=== PATIENT | female | born 1970 | race Caucasian/White ===

== ENCOUNTER 2017-05-07 08:13 | Emergency (ER) | payer BC ==
--- OUTSIDE RECORDS SUMMARY | 2017-05-07 08:30 | XMS REPORT | Continuity of Care Document ---
:1970 Author Organization [facility] ([facility]) Address [address] [place] [address] Phone [phone] Care Team Providers Name Role Phone Alejandro Christie Primary Care Provider [phone] Source Comments This disclosure is being made pursuant to the Care Everywhere program, applicable federal and state laws, and may not contain all informaitonavailable regarding this patient.[facility] ([facility]) Active Allergies and Adverse Reactions Not on File Current Medications Prescription Sig. Disp. Refills Start Date End Date Status Naproxen Sodium 220 Take 440 mg by mouth Active mg Tab daily. multivitamin tablet Take 1 Tab by mouth Active daily. meTHIMAzole 5 mg Take 5 mg by mouth 3 Active tablet times daily. levothyroxine 125 mcg Take 1 Tab by mouth 30 Tab 11 08/09/2011 Active tablet every morning before breakfast. 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 Social History Tobacco Use Types Packs/Day Years Used Date Never Smoker Last Filed Vital Signs Vital Sign Reading Time Taken Blood Pressure 147/74 07/22/2011 3:12 PM CDT Pulse 82 07/22/2011 3:12 PM CDT Temperature 36.3 C (97.3 F) 07/22/2011 3:12 PM CDT Respiratory Rate 20 03/10/2007 10:56 PM CDT Height 1.695 m (5' 6.73") 03/04/2011 1:31 PM CDT Weight 126.2 kg (278 lb 3.5 oz) 07/22/2011 3:12 PM CDT Body Mass Index 43.93 07/22/2011 3:12 PM CDT Oxygen Saturation - - Plan of Care Health Maintenance Due Date Last Done Comments Hepatitis B Vaccine (1 of 3 - Primary Series) 1970 Tdap Vaccine 1981 Lipid Disorder Screening 1988 MMR Vaccine 1988 Td Vaccine 1988 Cervical Cancer Screening 2000 Mammogram 2010 Influenza Vaccine: Seasonal (#1) 06/20/2016 Results from Last 3 Months Not on file
[2017-05-07] MEDS ORDERED: oxyCODONE HCL/ACETAMINOPHEN 1 TAB TABLET PO ONE (08:56)
[2017-05-07 08:58] VITALS: BP 145/99
[2017-05-07] MEDS ORDERED: oxyCODONE HCL/ACETAMINOPHEN 1 TAB TABLET ONE (08:59)
--- NOTE | 2017-05-07 09:00 | ERNOTE ---
Lower Extremity HPI - General Lower Extremities Pain: foot: left Time Seen by Provider: 05/07/17 08:17 Source: patient Exam Limitations: no limitations - Immun/Allergies/Home Medications Immunizations: IMMUNIZATION HX Immunizations Up to Date Yes History of Influenza Vaccine No Hx Pneumococcal Vaccination No Allergies/Adverse Reactions: Allergies Allergy/AdvReac Type Severity Reaction Status Date / Time No Known Allergies Allergy Verified 05/07/17 08:25 Home Medications: HOME MEDICATIONS Levothyroxine Sodium [Synthroid] 125 mcg PO DAILY 05/07/17 [Last Taken Unknown] oxyCODONE HCL/ACETAMINOPHEN [Percocet 5 MG/325 MG] 1 - 2 tab PO Q4H PRN #30 tab 05/07/17 [Last Taken Unknown] - History of Present Illness Narrative: Patient has been in a CAMboot since September for tendinitis. She had an Xray initially and only had mild pain on a daily basis. Two days ago she started to have severe sharp and throbbing pain in the same location (medial arch), she denies any injury, wears the boot faithfully, does her exercises five times a day. Method of Injury: Reports: no apparent injury Other Injuries: Reports: none Subsequent Symptoms: Denies: sensory loss, numbness Review of Systems - Review of Systems Constitutional: Absent: recent illness, fever ENT: Absent: nasal drainage, sore throat Respiratory: Absent: shortness of breath Cardiology: Absent: chest pain Gastrointestinal/Abdominal: Absent: nausea, diarrhea, abdominal pain Genitourinary: Present: no symptoms reported Musculoskeletal: Present: See HPI Skin: Absent: rash Neurological: Absent: weakness, numbness - Patient's Past Medical History Patient History - Medical: Hypothyroidism, Obesity Patient History - Cardiac/Respiratory: No pertinent hx Patient History - Cancer: No Hx of Cancer Patient History - Other: None LMP (females 10-50): Menopausal - Social History Living Situations: home Abuse History: No History of abuse Psych History: No pertinent hx Smoking Status: Never smoker Alcohol Use: rarely Drug Use: none - Immunizations Immunizations Up to Date: Yes Hx Pneumococcal Vaccination: No History of Influenza Vaccine: No Physical Exam - Physical Exam General Appearance: Present: wd/wn, alert, no apparent distress, obese Respiratory: Present: no respiratory distress, normal breath sounds, no accessory muscle use, lungs clear Cardiovascular/Chest: Present: regular rate, rhythm, no murmur Extremity Exam: Present: normal inspection, normal except - - left poultry tender over medial arch, pain in that area with flexion, no other tenderness, no swelling,. Absent: calf tenderness Neurological Exam: Present: alert, oriented, normal mood/affect, no motor/ sensory deficits Skin Exam: Present: normal color, warm/dry ED Progress - Vital Signs Patient's Vital Signs:: I have reviewed the patient's vital signs. Vital Signs: Vital Signs 05/07/17 08:19 Temperature 37.0 C Pulse Rate 71 Respiratory 16 Rate Blood Pressure 191/96 O2 Sat by Pulse 100 Oximetry - X-Ray X-Ray #1 X-Ray: foot - no acute changes Interpretation: Interp. by me - Progress/Reassessment Chief Complaint: Foot Injury/Pain Progress Note-Subjective: 05/07/17 09:00 discussed Xray results, follow up with ortho, might need MRI, repeat BP improved Departure Clinical Impression: Foot pain, left - Departure Disposition: Home self-care Condition: Good Instructions: Tendinitis, [id number] Additional Instructions: call our orthopedic doctor after the weekend for follow up Referrals: Parisa Rahman ARNP [Primary Care Provider] - Prescriptions: oxyCODONE HCL/ACETAMINOPHEN [Percocet 5 MG/325 MG] 1 - 2 tab PO Q4H PRN #30 tab PRN Reason: Pain
== END 2017-05-07 09:01 | disposition home or self-care (01) ==
LOC: ER 08:13
DX: M79.672 Pain in left foot (principal); E03.9 Hypothyroidism, unspecified

== ENCOUNTER 2017-09-28 09:45 | Emergency (ER) | payer BC ==
[2017-09-28] MEDS ORDERED: KETOROLAC TROMETHAMINE 30 MG/ML VIAL IV ONE (10:04)
[2017-09-28] MEDS ORDERED: KETOROLAC TROMETHAMINE 30 MG/ML VIAL ONE (10:12)
[2017-09-28] MEDS ORDERED: ONDANSETRON HCL/PF 2 MG/ML VIAL ONE (10:12)
--- NOTE | 2017-09-28 10:12 | ERNOTE ---
Abdominal HPI - Narrative Date of Service: 09/28/17 - General Chief Complaint: Abdominal Pain Time Seen by Provider: 09/28/17 10:03 Source: patient Exam Limitations: no limitations - Immun/Allergies/Home Medications Immunizatons: IMMUNIZATION HX Immunizations Up to Date Yes History of Influenza Vaccine No Hx Pneumococcal Vaccination No Allergies/Adverse Reactions: Allergies No Known Allergies Allergy (Verified 09/28/17 09:55) Home Medications: HOME MEDICATIONS Levothyroxine Sodium [Synthroid] 125 mcg PO DAILY 05/07/17 [Last Taken Unknown] oxyCODONE HCL/ACETAMINOPHEN [Percocet 5 MG/325 MG] 1 - 2 tab PO Q4H PRN #30 tab 05/07/17 [Last Taken Unknown] Naproxen [Naprosyn] 500 mg PO BID PRN #60 tab 09/28/17 [Last Taken Unknown] Sennosides [Senna Lax] 8.6 mg PO BID #30 tablet 09/28/17 [Last Taken Unknown] Tamsulosin HCl [Flomax] 0.4 mg PO DAILY@1800 #30 cap 09/28/17 [Last Taken Unknown] - History of Present Illness Narrative: Pt. comes in with c/o RLQ abd pain for two weks that was mild intermittent and for the past two days has become severe continuous pain that radiates to her umbilicus. Pt. states that movement, walking, and palpation worsen the pain but nothing alleviates it despite taking percocet for it. Pt. states that she is nauseated, but denies any fevers, diarrhea, or constipation. Pt. states that her LBM was today and it was normal for her. Review of Systems - Review of Systems Constitutional: Present: no symptoms reported. Absent: recent illness, fever, chills, fatigue, malaise EYE: Present: no symptoms reported ENT: Present: no symptoms reported Respiratory: Present: no symptoms reported. Absent: shortness of breath, cough , wheezing Cardiology: Present: no symptoms reported. Absent: chest pain, palpitations, edema Gastrointestinal/Abdominal: Present: nausea, abdominal pain. Absent: vomiting, diarrhea Genitourinary: Present: no symptoms reported Musculoskeletal: Present: no symptoms reported. Absent: back pain, joint pain Skin: Present: no symptoms reported Neurological: Present: no symptoms reported All Other Systems: All systems neg except as marked - Patient's Past Medical History Patient History - Medical: Hypothyroidism, Obesity Patient History - Cardiac/Respiratory: No pertinent hx Patient History - Cancer: No Hx of Cancer Patient History - Surgical Procedures: D & C, Other Patient History - Other: None - Social History Abuse History: No History of abuse Psych History: No pertinent hx Smoking Status: Never smoker Have you smoked in the past 12 months: No - Immunizations Immunizations Up to Date: Yes Hx Pneumococcal Vaccination: No History of Influenza Vaccine: No Physical Exam - Physical Exam General Appearance: Present: wd/wn, alert, no apparent distress Head Exam: Present: normal inspection, no evidence of injury Eye Exam: Normal inspection: bilateral, PERRL: bilateral, EOMI: bilateral Ears, Nose, Throat: Present: normal ENT inspection Neck: Present: normal inspection, nontender, supple, full range of motion Respiratory: Present: no respiratory distress, normal breath sounds, no accessory muscle use Cardiovascular/Chest: Present: regular rate, rhythm, no murmur, normal peripheral pulses Gastrointestinal/Abdominal: Present: normal bowel sounds, nondistended, soft, no organomegaly, McBurney sign, Psoas sign, other - obese. Absent: rebound, Obturator sign, Arana sign, mass Extremity Exam: Present: normal inspection Neurological Exam: Present: alert, oriented, normal mood/affect, no motor/ sensory deficits Skin Exam: Present: normal color, warm/dry. Absent: skin rash ED Progress - Date and Time Seen: Date and Time: 09/28/17 12:07 Feel that the possible calcification on the CT scan is likely a stone but should pas so will start pt. on flomax and have her strain all urine and follow up with urologist if not improved by Monday. Will also have pt. start sennalax for mild constipation. - Results and Orders Patient's Lab Results:: I have reviewed the patient's lab results. - Vital Signs Patient's Vital Signs:: I have reviewed the patient's vital signs. Vital Signs: Vital Signs 09/28/17 09:52 Temperature 36.6 C Pulse Rate 100 Respiratory 14 Rate Blood Pressure 145/86 O2 Sat by Pulse 98 Oximetry - X-Ray X-Ray #1 X-Ray: abdomen Interpretation: Interp. by me X-ray Comments: No free air, No obstructive gas pattern, moderate stool retention. - CT/Ultrasound CT/Ultrasound Narrative: ABDOMEN: The examination is overall limited by noncontrast CT technique. Potential parenchymal tumor or acute vascular process such as aortic dissection or thrombosis of a vascular structure would be difficult to exclude. Right kidney: No obvious mass. No definite signs of intrarenal calcifications. No hydronephrosis. No perinephric stranding. Series 3 image 133 demonstrates a potential tiny hyperdensity within the right distal ureter, at the level of the pelvic brim which does not show a definite calcification on the coronal reconstructions. This is probably artifactual, however given clinical indication of right lower quadrant abdominal pain and hematuria, possible tiny ureteral calcification should be considered. Left kidney: No obvious mass. No definite signs of intrarenal calcifications. No hydronephrosis. No perinephric stranding. No evidence for ureteral stone or dilation. Lung bases: There is a calcified granuloma in the left lower lobe. Mild cardiomegaly suggested. Liver: Unremarkable. Gallbladder: Unremarkable. Pancreas: Unremarkable. Spleen: Unremarkable. Adrenal glands: Unremarkable. Aorta: Unremarkable. maximal diameter of the infrarenal segment is 1.7 cm. Retroperitoneum: Unremarkable. Stomach: Unremarkable. Small bowel: Unremarkable. Large bowel: Diverticulosis of the sigmoid colon noted without definite signs of adjacent inflammatory changes. There is no evidence for colonic obstruction.. Normal caliber appendix visualized , best seen on series 3 image 104 -130. Abdominal wall: No definite hernia or mass. No definable intraperitoneal free air noted. PELVIS: Bladder: No bladder calcifications or abnormal air. The urinary bladder appears to be somewhat decompressed. No free fluid or fluid collection. No pelvic mass or lymphadenopathy. Bones: Appears intact. Multilevel degenerative changes of the thoracolumbar spine noted. Patient has surgical changes of the left proximal femur. IMPRESSION: 1. Questionable tiny calcification versus artifact suggested at the distal right ureter, without definite signs of obstructive uropathy. 2. If the patient has continued hematuria, consider urology referral/ consultation. 3. Noninflammatory, normal caliber appendix identified. 4. Diverticulosis of the colon without definite signs of acute diverticulitis. Additional comments and limitations are as above. Electronically signed by Chandler Aggarwal M.D.. - Progress/Reassessment Chief Complaint: Abdominal Pain Progress:: Unchanged Departure Clinical Impression: Ureteral stone Constipation Qualifiers: Constipation type: drug induced constipation Qualified Code(s): K59.03 - Drug induced constipation - Departure Disposition: Home self-care Condition: Good Instructions: Constipation, Adult, [id number], Kidney Stones, [id number] Additional Instructions: Please strtain all urine. Please start senna lax and please linmit amount of narcotics that you are taking to an absolute minimum. Referrals: Parisa Rahman ARNP [Primary Care Provider] - Prescriptions: Naproxen [Naprosyn] 500 mg PO BID PRN #60 tab PRN Reason: Pain Sennosides [Senna Lax] 8.6 mg PO BID #30 tablet Tamsulosin HCl [Flomax] 0.4 mg PO DAILY@1800 #30 cap
[2017-09-28] MEDS ORDERED: ONDANSETRON HCL/PF 2 MG/ML VIAL IV ONE (10:13)
[2017-09-28 10:28] LABS: Hematocrit 43.3 % (37.0-47.0); Hemoglobin 14.8 gm/dL (12.5-16.0); Mean Cell Volume 91.7 fl (78-100); Mean Corpuscular Hemoglobin 31.4 pg (27-31); Mean Corpuscular Hgb Conc 34.2 g/dl (32-36); Mean Platelet Volume 8.9 fl (6.0-9.5); Neutrophil # 5.6 K/mm3 (1.3-6.0); Neutrophil % 65.5 % (42-75.0); Platelet Count 384 K/mm3 (150-450); Red Blood Count 4.72 M/mm3 (4.2-5.4); Red Cell Distribution Width 12.3 % (11.5-14.0); White Blood Count 8.6 K/mm3 (4.0-10.5)
[2017-09-28 10:32] LABS: Urine Bilirubin Negative (NEGATIVE); Urine Blood 25 /ul (NEGATIVE); Urine Ketone Negative (NEGATIVE); Urine Nitrite Negative (NEGATIVE); Urine Protein Negative (NEGATIVE); Urine Specific Gravity 1.025 SP.GR. (1.005-1.010); Urine Urobilinogen Normal (NORMAL)
[2017-09-28 10:38] LABS: Albumin * 3.8 gm/dl (3.4-5.0); Anion Gap 15.6 mmol/L (6.8-13.8); BUN/Creatinine Ratio 17.2 (9.0-21.6); Bilirubin, Total 0.5 mg/dL (0.0-1.1); Ca. Corrected For Albumin 9.1 mg/dL (8.4-10.2); Calcium * 9.3 mg/dL (7.9-10.9); Carbon Dioxide 27.1 mmol/L (24-32.6); Potassium 3.7 mmol/L (3.4-4.6); Total Protein 8.2 gm/dL (6.2-8.2)
[2017-09-28 10:59] LABS: Urine Appearance Slightly Cloudy; Urine Color Dark Yellow
[2017-09-28 11:00] LABS: Urine Bacteria 1+; Urine RBC None Seen /hpf (0-5); Urine WBC 0-5 /hpf (0-5)
[2017-09-28 12:05] VITALS: BP 149/52
== END 2017-09-28 12:20 | disposition home or self-care (01) ==
LOC: ER 09:45
DX: N20.1 Calculus of ureter (principal); K59.03 Drug induced constipation; E03.9 Hypothyroidism, unspecified
CPT/HCPCS: 36415; 74020; 74176; 80053; 81001; 82150; 83690; 85025; 96374; 96375; 99284; J2405